=== PATIENT | female | born 1980 | race Caucasian/White ===

== ENCOUNTER 2018-06-17 22:27 | Emergency (ER) | payer OTHER ==
[2018-06-17] MEDS: DIPHENHYDRAMINE 50 MG CAP PO (23:01)
[2018-06-17] MEDS: FAMOTIDINE 20 MG TAB PO (23:01)
[2018-06-17] MEDS: predniSONE 20 MG TAB PO (23:01)
[2018-06-17] MEDS: LORAZEPAM 2 MG INJ IM (23:15)
[2018-06-18] MEDS: LORAZEPAM 2 MG INJ IM (00:27)
== END 2018-06-18 01:24 | disposition home or self-care (01) ==
LOC: E/R 22:27
DX: F13.230 Sedative, hypnotic or anxiolytic dependence with withdrawal, uncomplicated (principal); F17.210 Nicotine dependence, cigarettes, uncomplicated
CPT/HCPCS: 96372; 99284-25

== ENCOUNTER 2018-12-31 08:19 | Emergency (ER) | payer OTHER ==
[2018-12-31] MEDS: ONDANSETRON 4 MG INJ IV ×2 (09:34→11:33)
[2018-12-31] MEDS: SOD CHLORIDE 0.9% 1,000 ML IV ×2 (09:34→11:33)
[2018-12-31] MEDS: HYDROmorphONE 1 MG/ML SYG IV ×3 (09:34→12:59)
[2018-12-31] MEDS: KETOROLAC 15 MG INJ IV (09:34)
[2018-12-31 09:35] LABS: ADD MAN DIFF? NO
[2018-12-31 09:42] LABS: WHITE BLOOD COUNT 11.5 10^3/ul (4.8-10.8)
[2018-12-31 09:42] LABS: ABNORMAL IP MESSAGE 1; BASOPHIL # 0.1 10^3/ul (0.0-0.1); BASOPHILS % 0.8 % (0.0-2.0); EOSINOPHILS # 0.7 10^3/ul (0.0-0.5); EOSINOPHILS % 6.2 % (0.0-7.0); HEMATOCRIT 32.9 % (37.0-47.0); LYMPHOCYTES # 4.5 10^3/ul (0.8-2.9); LYMPHOCYTES % 39.1 % (15.0-51.0); MEAN CORPUSCULAR HEMOGLOBIN 22.4 pg (29.0-33.0); MEAN CORPUSCULAR HGB CONC 30.4 g/dl (32.0-37.0); MEAN CORPUSCULAR VOLUME 73.8 fl (82.0-101.0); MEAN PLATELET VOLUME 9.1 fl (7.4-10.4); NEUTROPHIL # 5.1 10^3/ul (1.6-7.5); NEUTROPHILS % 44.6 % (39.0-77.0); PLATELET COUNT 544 10^3/UL (140-415); RED BLOOD COUNT 4.46 10^6/ul (4.20-5.40); RED CELL DISTRIBUTION WIDTH 23.2 % (11.5-14.5)
[2018-12-31 09:54] LABS: POSITIVE DIFF @See below
[2018-12-31 09:56] LABS: ALANINE AMINOTRANSFERASE 28 IU/L (13-69); ALBUMIN 3.9 g/dl (3.3-4.9); ALBUMIN/GLOBULIN RATIO 1.21; ALKALINE PHOSPHATASE 71 IU/L (42-121); ANION GAP 9 (5-13); ASPARTATE AMINO TRANSFERASE 26 IU/L (15-46); BILIRUBIN,INDIRECT 0.3 mg/dl (0-1.1); BILIRUBIN,TOTAL 0.3 mg/dl (0.2-1.3); BLOOD UREA NITROGEN 12 mg/dl (7-20); CALCIUM 8.9 mg/dl (8.4-10.2); CARBON DIOXIDE 25 mmol/L (21-31); CHLORIDE 105 mmol/L (97-110); CREATININE 0.49 mg/dl (0.44-1.00); Estimated GFR > 60 mL/min (>60); GLUCOSE 106 mg/dl (70-220); LIPASE 91 U/L (23-300); POTASSIUM 4.4 mmol/L (3.5-5.1); SODIUM 139 mmol/L (135-144); TOTAL PROTEIN 7.1 g/dl (6.1-8.1)
[2018-12-31] MEDS: LORAZEPAM 2 MG INJ IV (10:17)
[2018-12-31 10:37] LABS: ADD UMIC YES; UR ASCORBIC ACID NEGATIVE (NEGATIVE); UR BACTERIA FEW /HPF (NONE SEEN); UR BILIRUBIN (Dip) NEGATIVE (NEGATIVE); UR BLOOD (Dip) NEGATIVE (NEGATIVE); UR CLARITY CLOUDY (CLEAR); UR COLOR YELLOW (YELLOW); UR GLUCOSE (Dip) NEGATIVE (NEGATIVE); UR KETONES (Dip) NEGATIVE (NEGATIVE); UR LEUKOCYTE ESTERASE (Dip) 3+ Leu/ul (NEGATIVE); UR MUCUS FEW /HPF (NONE SEEN); UR NITRITE (Dip) NEGATIVE (NEGATIVE); UR RBC 9 /HPF (0-5); UR SPECIFIC GRAVITY (Dip) 1.019 (1.003-1.030); UR SQUAMOUS EPITHELIAL CELL FEW /HPF (FEW); UR TOTAL PROTEIN (Dip) NEGATIVE (NEGATIVE); UR UROBILINOGEN (Dip) NEGATIVE (NEGATIVE); UR WBC 11 /HPF (0-5)
== END 2018-12-31 14:00 | disposition short-term general hospital (02) ==
LOC: E/R 08:19
DX: Q45.3 Other congenital malformations of pancreas and pancreatic duct (principal); Z87.891 Personal history of nicotine dependence
CPT/HCPCS: 36415; 74176; 80053; 81001; 81025; 83690; 84703; 85025; 87086; 96374; 96375; 99285-25